=== PATIENT | female | born 1980 | race Caucasian/White ===

== ENCOUNTER 2019-01-18 22:47 | Emergency (ER) | payer MEDICAID ==
[~2019-01-18] VITALS: Ht 144.8 cm; Wt 66.4 kg
[2019-01-18 22:51] VITALS: Ht 144.8 cm; Wt 66.4 kg
[2019-01-18] MEDS ORDERED: TOPAMAX50 MG (22:52)
[2019-01-18] MEDS ORDERED: BUPROPION HCL75 MG (22:52)
[2019-01-18] MEDS ORDERED: XANAX0.25 MG (22:53)
[2019-01-18] MEDS ORDERED: COUMADIN1 MG (22:53)
[2019-01-19] MEDS ORDERED: KLONOPIN0.5 MG PO (01:54)
[2019-01-19 02:24] VITALS: BP 118/87
== END 2019-01-19 02:24 | disposition home or self-care (01) ==
LOC: D.ER 22:47
DX: S00.83XA Contusion of other part of head, initial encounter (principal); Y04.2XXA Assault by strike against or bumped into by another person, initial encounter; Y93.89 Activity, other specified; Y92.89 Other specified places as the place of occurrence of the external cause; S16.1XXA Strain of muscle, fascia and tendon at neck level, initial encounter

== ENCOUNTER 2019-03-18 09:22 | Inpatient (IN) | payer MEDICAID ==
[~2019-03-18] VITALS: Ht 144.8 cm; Wt 75.1 kg
[~2019-03-18 09:22] MED LIST: BUPROPION HCL75 MG PO; COUMADIN1 MG PO; KLONOPIN0.5 MG PO; TOPAMAX50 MG PO; XANAX0.25 MG
[2019-03-18] MEDS ORDERED: GABAPENTIN100 MG PO (09:31)
--- NOTE | 2019-03-18 10:12 | NUR ---
PT HAD SC IN SEPTEMBER AND HAD 2 STENTS PLACED AT THAT TIME. HISTORY OF MECHANICAL HEART VALVE.
[2019-03-18 10:19] LABS: ALBUMIN 3.7 g/dL (3.4-5.0); ALKALINE PHOSPHATASE 79 U/L (46-116); ALT (SGPT) 23 U/L (10-68); BILIRUBIN - TOTAL 0.12 mg/dL (0.2-1.3); CALC OSMOLALITY 275 mosm/kg (275-300); CARBON DIOXIDE 27.5 mmol/L (21.0-32.0); CHLORIDE - SERUM 106 mmol/L (98-107); CREATININE - SERUM 0.8 mg/dL (0.6-1.3); GLUCOSE 87 mg/dL (74-106); POTASSIUM - SERUM 4.1 mmol/L (3.5-5.1); PROTEIN - SERUM 7.2 g/dL (6.4-8.2); SODIUM 139 mmol/L (136-145); UREA NITROGEN 9 mg/dL (7-18); eGFR NON AFRICAN AMERICAN 86 mL/min (90-120)
[2019-03-18 10:30] LABS: CKMB 0.6 U/L (0.0-3.6); CREATINE KINASE 67 UL (21-215); INR 7.31 (0.85-1.17); PROTIME 61.6 SECONDS (11.6-15.0); TROPONIN-I < 0.017 ng/mL (0.000-0.060)
[2019-03-18 10:33] LABS: BASOPHILS 0.7 % (0-2); EOSINOPHILS 2.5 % (0-7); HEMATOCRIT 34.7 % (36.0-48.0); IMMATURE GRANULOCYTES 1.1 % (0-5); LYMPHOCYTES 29.6 % (15-50); MCH 26.8 pg (26.0-34.0); MCHC 31.7 g/dL (31.0-37.0); MCV 84.6 fL (80.0-100.0); MONOCYTES 11.2 % (2-11); NEUTROPHILS 54.9 % (40-80); PLATELET COUNT 568 10x3/uL (130-400); RDW 18.1 % (11.5-14.5); WBC 10.8 10x3/uL (4.8-10.8)
--- NOTE | 2019-03-18 13:46 | NUR ---
RECIVED FROM ER PER BED .. ADMIT ASSESSMENT PER RN
[2019-03-18 13:55] VITALS: BP 129/83; BMI 30.3
--- NOTE | 2019-03-18 17:49 | NUR ---
WITHOUT CHANGES OR DISTRESS NOTED AT THIS TIME. DENIES NEEDS
[2019-03-18 18:20] VITALS: BP 91/53
--- NOTE | 2019-03-18 18:45 | NUR ---
TOOK PT TWO LARGE CUPS OF ICE WATER AND INFORMED HER THAT DR NORTON HAS ORDERED A PELVIC US AND SHE NEEDS A FULL BLADDER FOR THE EXAM. PT STATED UNDERSTANDING AND WILL CALL ATER SHE DRINKS BOTH CUPS OF WATER.
--- NOTE | 2019-03-18 19:35 | NUR ---
GONE TO US VIA .
[2019-03-18 20:00] VITALS: BP 107/62
--- NOTE | 2019-03-18 20:33 | NUR ---
PT BACK TO ROOM FROM US, HS MEDS GIVEN WITH FRESH ICE WATER. TORADOL GIVEN FOR C/O PAIN TP PELVIS/ABD. RATES PAIN AT A 10 ON PAIN SCALE.
[2019-03-18 22:30] LABS: BASOPHILS 0.3 % (0-2); EOSINOPHILS 2.3 % (0-7); HEMATOCRIT 31.9 % (36.0-48.0); HEMOGLOBIN 9.9 g/dL (12-16); IMMATURE GRANULOCYTES 0.8 % (0-5); LYMPHOCYTES 31.4 % (15-50); MCH 26.8 pg (26.0-34.0); MCV 86.2 fL (80.0-100.0); MEAN PLATELET VOLUME 8.9 fL (7.4-10.4); MONOCYTES 10.1 % (2-11); NEUTROPHILS 55.1 % (40-80); PLATELET COUNT 509 10x3/uL (130-400); RDW 18.2 % (11.5-14.5)
[2019-03-18 22:31] LABS: WBC 14.2 10x3/uL (4.8-10.8)
[2019-03-19] VITALS: BP 91/52
[2019-03-19 04:00] VITALS: BP 100/67
[2019-03-19 06:09] LABS: BASOPHILS 0.5 % (0-2); EOSINOPHILS 2.1 % (0-7); HEMATOCRIT 31.4 % (36.0-48.0); HEMOGLOBIN 9.7 g/dL (12-16); IMMATURE GRANULOCYTES 0.7 % (0-5); LYMPHOCYTES 28.6 % (15-50); MCH 26.7 pg (26.0-34.0); MCHC 30.9 g/dL (31.0-37.0); MCV 86.5 fL (80.0-100.0); MEAN PLATELET VOLUME 9.6 fL (7.4-10.4); MONOCYTES 10.1 % (2-11); PLATELET COUNT 450 10x3/uL (130-400); RBC 3.63 10x6/uL (4.00-5.40); RDW 18.5 % (11.5-14.5); WBC 11.7 10x3/uL (4.8-10.8)
[2019-03-19 06:40] VITALS: Ht 144.8 cm; Wt 75.1 kg
[2019-03-19 06:43] LABS: ALBUMIN 3.3 g/dL (3.4-5.0); ALKALINE PHOSPHATASE 91 U/L (46-116); BILIRUBIN - TOTAL 0.13 mg/dL (0.2-1.3); CALCIUM 8.2 mg/dL (8.5-10.1); CARBON DIOXIDE 24.4 mmol/L (21.0-32.0); CHLORIDE - SERUM 108 mmol/L (98-107); CREATININE - SERUM 0.9 mg/dL (0.6-1.3); GLUCOSE 83 mg/dL (74-106); POTASSIUM - SERUM 4.1 mmol/L (3.5-5.1); PROTEIN - SERUM 6.2 g/dL (6.4-8.2); SODIUM 138 mmol/L (136-145); eGFR NON AFRICAN AMERICAN 75 mL/min (90-120)
[2019-03-19 06:44] LABS: ALT (SGPT) 117 U/L (10-68); CALC OSMOLALITY 275 mosm/kg (275-300); UREA NITROGEN 15 mg/dL (7-18)
[2019-03-19 07:10] LABS: PROTIME 62.6 SECONDS (11.6-15.0)
[2019-03-19 07:13] LABS: INR 7.47 (0.85-1.17)
--- NOTE | 2019-03-19 07:46 | NUR ---
ASSESSMENT DONE. DENIES NEEDS
[2019-03-19 08:58] VITALS: BP 78/44
--- NOTE | 2019-03-19 09:49 | NUR ---
I have reviewed this patient and I concur with the Shift Assessment completed by the Licensed Practical Nurse today this shift.
[2019-03-19 12:00] VITALS: BP 86/34
[2019-03-19 16:00] VITALS: BP 81/48
--- NOTE | 2019-03-19 17:01 | NUR ---
WITHOUT CHANGES OR DISTRESS NOTED AT THIS TIME. DENIES NEEDS
[2019-03-19 19:00] VITALS: BP 95/58
--- NOTE | 2019-03-19 19:15 | NUR ---
RECEIVED REPORT, WILL ASSUME CARE OF PT, ASKING FOR A SPRITE(PROVIDED), DENIES ANY OTHER NEEDS AT THIS TIME, FAMILY AT BEDSIDE, BED IS LOW, SRX2, CALL LIGHT IN REACH, WILL CONTINUE PLAN OF CARE
[2019-03-20] VITALS (7 sets, daily range): BP systolic 86–135; BP diastolic 42–69
--- NOTE | 2019-03-20 01:04 | NUR ---
WENT TO GIVE PAIN MEDS, PT WAS SOUND A SLEEP, WILL WAIT FOR HER TO CALL AGAIN
--- NOTE | 2019-03-20 02:33 | NUR ---
I have reviewed this patient and I concur with the Shift Assessment completed by the Licensed Practical Nurse today this shift.
[2019-03-20 05:07] LABS: BASOPHILS 0.6 % (0-2); EOSINOPHILS 2.3 % (0-7); HEMATOCRIT 29.2 % (36.0-48.0); HEMOGLOBIN 8.9 g/dL (12-16); IMMATURE GRANULOCYTES 0.3 % (0-5); LYMPHOCYTES 33.2 % (15-50); MCH 26.5 pg (26.0-34.0); MCHC 30.5 g/dL (31.0-37.0); MCV 86.9 fL (80.0-100.0); MEAN PLATELET VOLUME 9.5 fL (7.4-10.4); MONOCYTES 9.1 % (2-11); NEUTROPHILS 54.5 % (40-80); PLATELET COUNT 438 10x3/uL (130-400); RBC 3.36 10x6/uL (4.00-5.40)
[2019-03-20 05:29] LABS: ALBUMIN 2.9 g/dL (3.4-5.0); ALKALINE PHOSPHATASE 81 U/L (46-116); BILIRUBIN - TOTAL 0.13 mg/dL (0.2-1.3); CALCIUM 8.3 mg/dL (8.5-10.1); CARBON DIOXIDE 23.3 mmol/L (21.0-32.0); CHLORIDE - SERUM 111 mmol/L (98-107); CREATININE - SERUM 0.9 mg/dL (0.6-1.3); GLUCOSE 98 mg/dL (74-106); INR 6.5 (0.85-1.17); POTASSIUM - SERUM 3.9 mmol/L (3.5-5.1); PROTEIN - SERUM 5.9 g/dL (6.4-8.2); PROTIME 56.1 SECONDS (11.6-15.0); SODIUM 140 mmol/L (136-145); eGFR NON AFRICAN AMERICAN 75 mL/min (90-120)
[2019-03-20 05:30] LABS: ALT (SGPT) 76 U/L (10-68); CALC OSMOLALITY 280 mosm/kg (275-300); UREA NITROGEN 19 mg/dL (7-18)
--- NOTE | 2019-03-20 07:44 | NUR ---
AWAKE AND ORIENTED. TELEMERTY SHOWS SR WITH PACED BEATS. RIGHT AC WITH NS AT 125. PT IS UP AB LUCILA. VISITOR AT BEDSIDE. WILL MONITOR
--- NOTE | 2019-03-20 10:04 | NUR ---
I have reviewed this patient and I concur with the Shift Assessment completed by the Licensed Practical Nurse today this shift.
--- NOTE | 2019-03-20 19:34 | NUR ---
REPORTED LOST IV ACCESS. ATTEMPTS MADE AND UNSUCESSFUL TO RESTART. CALLED CURRICULUM DEVELOPMENT SPECIALIST FOR PAIN COVERAWGE. D/C'D IV DILAUDID AND STARTED NORCO 1PO Q6HRP. WILL NOTIFY PT.
--- NOTE | 2019-03-20 20:00 | NUR ---
RECEIVED PT FROM NORMA LYNN, PT COMPLAINS OF PAIN, GAVE NORCO ORDERED, DENIES ANY OTHER NEEDS AT THIS TIME, BED IS LOW, SRX2, CALL LIGHT IN REACH, WILL CONTINUE PLAN OF CARE
--- NOTE | 2019-03-21 01:01 | NUR ---
I have reviewed this patient and I concur with the Shift Assessment completed by the Licensed Practical Nurse today this shift.
[2019-03-21 04:00] VITALS: BP 81/40
[2019-03-21 05:18] LABS: BASOPHILS 0.4 % (0-2); EOSINOPHILS 2.4 % (0-7); HEMATOCRIT 29.4 % (36.0-48.0); IMMATURE GRANULOCYTES 0.5 % (0-5); LYMPHOCYTES 30.4 % (15-50); MCH 26.5 pg (26.0-34.0); MCHC 30.6 g/dL (31.0-37.0); MCV 86.5 fL (80.0-100.0); MEAN PLATELET VOLUME 9.5 fL (7.4-10.4); MONOCYTES 8.4 % (2-11); NEUTROPHILS 57.9 % (40-80); PLATELET COUNT 452 10x3/uL (130-400); RDW 19.2 % (11.5-14.5); WBC 10.3 10x3/uL (4.8-10.8)
[2019-03-21 05:28] LABS: INR 4.49 (0.85-1.17); PROTIME 41.8 SECONDS (11.6-15.0)
[2019-03-21 05:30] LABS: ALBUMIN 3.2 g/dL (3.4-5.0); ALKALINE PHOSPHATASE 73 U/L (46-116); ALT (SGPT) 58 U/L (10-68); BILIRUBIN - TOTAL 0.19 mg/dL (0.2-1.3); CALC OSMOLALITY 274 mosm/kg (275-300); CALCIUM 8.6 mg/dL (8.5-10.1); CARBON DIOXIDE 20.9 mmol/L (21.0-32.0); CHLORIDE - SERUM 110 mmol/L (98-107); CREATININE - SERUM 0.9 mg/dL (0.6-1.3); GLUCOSE 86 mg/dL (74-106); POTASSIUM - SERUM 3.7 mmol/L (3.5-5.1); PROTEIN - SERUM 6.1 g/dL (6.4-8.2); SODIUM 137 mmol/L (136-145); UREA NITROGEN 18 mg/dL (7-18); eGFR NON AFRICAN AMERICAN 75 mL/min (90-120)
[2019-03-21 07:52] VITALS: BP 91/53
--- NOTE | 2019-03-21 09:53 | NUR ---
PT HAS NO IV ACCESS, EVEN AFTER MULTIPLE ATTEMPTS, PAGED RENETTA BELCHER, WAITING MANAGER MARKET BACK.
--- NOTE | 2019-03-21 10:22 | NUR ---
NORCO GIVEN FOR PAIN LEVEL OF 9/10. PT RESTING COMFORTABLY, INFORMED HER ABOUT NOT PLACING CVL AT THIS TIME. PT VERBALIZED UNDERSTANDING, DENIES ANY OTHER NEEDS AT THIS TIME. CALL LIGHT IN REACH, NAD NOTED, WILL CONTINUE TO MONITOR.
[2019-03-21 12:00] VITALS: BP 96/43
--- NOTE | 2019-03-21 14:10 | NUR ---
DR. MICHAEL AND RENETTA BELCHER AT BEDSIDE, PT DENIES ANY NEEDS AT THIS TIME. CALL LIGHT IN REACH, NAD NOTED.
--- NOTE | 2019-03-21 14:57 | NUR ---
GAVE NORCO FOR PAIN LEVEL OF 8/10. PT RESTING COMFORTABLY IN BED, DENIES ANY OTHER NEEDS AT THIS TIME. CALL LIGHT IN REACH, FAMILY AT BEDSIDE, NAD NOTED, WILL CONTINUE TO MONITOR.
[2019-03-21 15:47] VITALS: BP 112/65
--- NOTE | 2019-03-21 18:20 | NUR ---
PT C/O MALE VISITOR NOT ALLOWED TO BE IN THE ROOM, EVEN THOUGH SHE TOLD THIS NURSE AND KITA RN THAT SHE HAD CALLED HIM TO BRING HER PERSONAL BELONGINGS TO HOSPITAL. BEFORE MALE VISITOR LEFT HE TOLD KITA LYNN TO CHECK PT'S SIDE DRAWER. THIS NURSE AND KITA CHECKED PT'S SIDE DRAWERS AND FOUND NOTHING BUT A VAPE. INFORMED PT THAT MALE VISITOR WOULD NOT BE ALLOWED IN ROOM.
--- NOTE | 2019-03-21 19:37 | NUR ---
RECEIVED REPORT, WILL ASSUME CARE OF PT, DENIES ANY NEEDS AT THIS TIME, BED IS LOW, SRX2, CALL LIGHT IN REACH, WILL CONTINUE PLAN OF CARE
--- NOTE | 2019-03-21 19:43 | NUR ---
PT FRIEND ABENA PUSHING PT IN WHEELCHAIR ON UNIT, I CHANGED PT BREEN
[2019-03-21 20:00] VITALS: BP 130/69
[2019-03-22 00:34] VITALS: BP 98/46
[2019-03-22 04:00] VITALS: BP 113/56
--- NOTE | 2019-03-22 04:02 | NUR ---
I have reviewed this patient and I concur with the Shift Assessment completed by the Licensed Practical Nurse today this shift.
[2019-03-22 05:51] LABS: BASOPHILS 0.5 % (0-2); EOSINOPHILS 2.2 % (0-7); HEMATOCRIT 29.4 % (36.0-48.0); HEMOGLOBIN 9.1 g/dL (12-16); IMMATURE GRANULOCYTES 0.4 % (0-5); MCH 26.5 pg (26.0-34.0); MCV 85.5 fL (80.0-100.0); MEAN PLATELET VOLUME 9.4 fL (7.4-10.4); MONOCYTES 8.8 % (2-11); NEUTROPHILS 60.1 % (40-80); PLATELET COUNT 457 10x3/uL (130-400); RBC 3.44 10x6/uL (4.00-5.40); RDW 19.5 % (11.5-14.5); WBC 10.5 10x3/uL (4.8-10.8)
[2019-03-22 06:02] LABS: INR 3.73 (0.85-1.17); PROTIME 36.1 SECONDS (11.6-15.0)
[2019-03-22 06:33] LABS: ALBUMIN 3.2 g/dL (3.4-5.0); ALKALINE PHOSPHATASE 71 U/L (46-116); ALT (SGPT) 49 U/L (10-68); BILIRUBIN - TOTAL 0.15 mg/dL (0.2-1.3); CALC OSMOLALITY 278 mosm/kg (275-300); CALCIUM 8.6 mg/dL (8.5-10.1); CARBON DIOXIDE 21.3 mmol/L (21.0-32.0); CHLORIDE - SERUM 109 mmol/L (98-107); CREATININE - SERUM 0.9 mg/dL (0.6-1.3); GLUCOSE 89 mg/dL (74-106); POTASSIUM - SERUM 3.6 mmol/L (3.5-5.1); PROTEIN - SERUM 6.3 g/dL (6.4-8.2); SODIUM 140 mmol/L (136-145); UREA NITROGEN 15 mg/dL (7-18); eGFR NON AFRICAN AMERICAN 75 mL/min (90-120)
[2019-03-22 07:38] VITALS: BP 73/39
--- NOTE | 2019-03-22 07:58 | NUR ---
ASSESSMENT DONE. DENIES NEEDS
--- NOTE | 2019-03-22 09:07 | NUR ---
I have reviewed this patient and I concur with the Shift Assessment completed by the Licensed Practical Nurse today this shift.
[2019-03-22 11:27] VITALS: BP 96/44
--- NOTE | 2019-03-22 14:30 | NUR ---
PT WENT AMA. AND WING HANNAH
--- NOTE | 2019-03-22 15:01 | MORECARE ---
CASE MANAGEMENT DISCHARGE SUMMARY PATIENT: KERA NJ UNIT: [id number] ADM DATE: 03/18/19 AGE: 38 : 82 SEX: F ROOM/BED: D.2121 AUTHOR: TOSHA GROVES PHYSICIAN: REFERRING PHYSICIAN: LEILANI MICHAEL MD DATE OF SERVICE: 03/22/19 Discharge Plan Patient Name: KERA NJ Facility: [facility]:[place] : 1980 Planned Disposition: Anticipated Discharge Date: Discharge Date: Expected LOS: Initial Reviewer: [email or web address] Initial Review Date: 03/22/2019 Generated: 03/22/19 4:01 pm Comments DCP- Discharge Planning Updated by [email or web address]: Tristian Stevens on 03/22/19 1:[address] Patient Name: KERA NJ Admission Status: ER Accout number: [id number] Admission Date: 03-18-2019 : 1980 Admission Diagnosis: Attending: LEILANI MICHAEL Current LOS: 4 Anticipated DC Date: Planned Disposition: Primary Insurance: MEDICAID [place] Discharge Planning Comments: CM ATTEMPTED TO MEET WITH PT FOR INITIAL ASSESSMENT OF DISCHARGE NEEDS. PT WAS NOT IN ROOM AT APPROXIMATELY 1450 HOURS. CM TO ATTEMPT ASSESSMENT OF PT AT A LATER TIME. Company Dancer: Tristian Stevens Patient Name: KERA NJ Page [phone] at 1501 All edits/amendments must be made on the electronic document DICTATION DATE: 03/22/19 1501 BRAILLE PROOFREADER: [place] 03/22/19 1501 RPT#: [id number] DC DATE: STATUS: ADM IN [facility] [address] [place] [address] END OF REPORT
--- NOTE | 2019-03-22 16:34 | MORECARE ---
CASE MANAGEMENT DISCHARGE SUMMARY PATIENT: KERA NJ UNIT: [id number] ADM DATE: 03/18/19 AGE: 38 : 82 SEX: F ROOM/BED: D.[facility]2 AUTHOR: TOSHA GROVES PHYSICIAN: REFERRING PHYSICIAN: LEILANI MICHAEL MD DATE OF SERVICE: 03/22/19 Discharge Plan Patient Name: KERA NJ Facility: [facility]:[place] : 1980 Planned Disposition: Left Against Medical Advice Anticipated Discharge Date: 03/22/19 Discharge Date: 03/22/2019 Expected LOS: 4 Initial Reviewer: [email or web address] Initial Review Date: 03/22/2019 Generated: 03/22/19 5:33 pm Comments DCP- Discharge Planning Updated by RAMONITA: Tristian Stevens on 03/22/19 1:[address] Patient Name: KERA NJ Admission Status: ER Accout number: [id number] Admission Date: 03-18-2019 : 1980 Admission Diagnosis: Attending: LEILANI MICHAEL Current LOS: 4 Anticipated DC Date: Planned Disposition: Primary Insurance: MEDICAID [place] Discharge Planning Comments: CM ATTEMPTED TO MEET WITH PT FOR INITIAL ASSESSMENT OF DISCHARGE NEEDS. PT WAS NOT IN ROOM AT APPROXIMATELY 1450 HOURS. CM TO ATTEMPT ASSESSMENT OF PT AT A LATER TIME. Nematology Teacher: Tristian Stevens Last DP export: 03/22/19 2:01 Patient Name: KERA NJ Page [phone] at 1634 All edits/amendments must be made on the electronic document DICTATION DATE: 03/22/19 163 BULB TESTER: [place] 03/22/19 163 RPT#: [id number] DC DATE:03/22/19 STATUS: DIS IN [facility] [address] [place] [address] END OF REPORT
== END 2019-03-22 15:16 | disposition left against medical advice (07) | DRG 813 ==
LOC: D.ER 09:22 → D.M2 12:08 → D.SDCHOLD 13:56 → D.M2 13:56
PROVIDERS: Family Medicine; Student in an Organized Health Care Education/Training Program; ADMIT Emergency Medicine; ATTEND Emergency Medicine
DX: D75.82 Heparin induced thrombocytopenia (HIT) (principal); D62 Acute posthemorrhagic anemia; N92.0 Excessive and frequent menstruation with regular cycle; D68.9 Coagulation defect, unspecified; Z79.01 Long term (current) use of anticoagulants; I35.0 Nonrheumatic aortic (valve) stenosis; T45.515A Adverse effect of anticoagulants, initial encounter; Z95.2 Presence of prosthetic heart valve

== ENCOUNTER 2019-06-16 16:44 | Emergency (ER) | payer MEDICAID ==
[~2019-06-16] VITALS: Ht 144.8 cm; Wt 54.1 kg
[~2019-06-16 16:44] MED LIST changes: +GABAPENTIN100 MG PO
[2019-06-16 16:49] VITALS: Ht 144.8 cm; Wt 54.1 kg
--- NOTE | 2019-06-16 17:25 | NUR ---
PT IS A LOW RISK PER ASSESSMENT. REVIEWED COPING SKILLS WITH PT. PT GOES "INTO NATURE TO FIND PEACE." RESOURCES REVIEWED WITH PT AND GIVEN A COPY. VERBALIZED UNDERSTANDING. DENIES SI AT THIS TIME.DR. CARMONA AND ATTENDING NOTIFIED OF ASSESSMENT RESULTS.
[2019-06-16 17:51] LABS: BASOPHILS 0.4 % (0-2); EOSINOPHILS 1.4 % (0-7); HEMATOCRIT 30.1 % (36.0-48.0); HEMOGLOBIN 9.5 g/dL (12-16); IMMATURE GRANULOCYTES 0.2 % (0-5); LYMPHOCYTES 38.9 % (15-50); MCH 27.5 pg (26.0-34.0); MCHC 31.6 g/dL (31.0-37.0); MEAN PLATELET VOLUME 9.4 fL (7.4-10.4); MONOCYTES 10.2 % (2-11); NEUTROPHILS 48.9 % (40-80); PLATELET COUNT 507 10x3/uL (130-400); RBC 3.46 10x6/uL (4.00-5.40); RDW 15.1 % (11.5-14.5); WBC 8.4 10x3/uL (4.8-10.8)
[2019-06-16 17:53] LABS: HCG URINE NEGATIVE (NEGATIVE)
[2019-06-16 17:54] LABS: APPEARANCE CLEAR (CLEAR); BILIRUBIN NEGATIVE (NEGATIVE); COLOR YELLOW (YELLOW); GLUCOSE NEGATIVE (NEGATIVE); KETONE NEGATIVE (NEGATIVE); NITRITE NEGATIVE (NEGATIVE); PROTEIN NEGATIVE (NEGATIVE); UROBILINOGEN NORMAL (NORMAL)
[2019-06-16 17:58] LABS: UDS - AMPHET NEGATIVE QUAL (NEGATIVE); UDS - BARB NEGATIVE QUAL (NEGATIVE); UDS - BENZO POSITIVE QUAL (NEGATIVE); UDS - COCAINE NEGATIVE QUAL (NEGATIVE); UDS - OPIATE NEGATIVE QUAL (NEGATIVE); UDS - PCP NEGATIVE QUAL (NEGATIVE); UDS - THC POSITIVE QUAL (NEGATIVE)
[2019-06-16 18:02] LABS: CALC OSMOLALITY 276 mosm/kg (275-300); CALCIUM 9.2 mg/dL (8.5-10.1); CARBON DIOXIDE 25.9 mmol/L (21.0-32.0); CHLORIDE - SERUM 106 mmol/L (98-107); CREATININE - SERUM 1.1 mg/dL (0.6-1.3); GLUCOSE 76 mg/dL (74-106); INR 1.85 (0.85-1.17); POTASSIUM - SERUM 4.2 mmol/L (3.5-5.1); PROTIME 21.1 SECONDS (11.6-15.0); SODIUM 138 mmol/L (136-145); UREA NITROGEN 19 mg/dL (7-18); eGFR NON AFRICAN AMERICAN 59 mL/min (90-120)
[2019-06-16 18:27] LABS: ALBUMIN 3.6 g/dL (3.4-5.0); ALKALINE PHOSPHATASE 67 U/L (46-116); ALT (SGPT) 15 U/L (10-68); BILIRUBIN - TOTAL 0.13 mg/dL (0.2-1.3); CKMB 0.4 U/L (0.0-3.6); CREATINE KINASE 62 UL (21-215); PROTEIN - SERUM 6.5 g/dL (6.4-8.2)
[2019-06-16 21:05] VITALS: BP 98/61
== END 2019-06-16 21:05 | disposition home or self-care (01) ==
LOC: D.ER 16:44
PROVIDERS: Family Medicine
DX: R10.9 Unspecified abdominal pain (principal); T50.905A Adverse effect of unspecified drugs, medicaments and biological substances, initial encounter; I25.2 Old myocardial infarction; Z95.810 Presence of automatic (implantable) cardiac defibrillator; Z95.4 Presence of other heart-valve replacement

== ENCOUNTER 2019-06-26 19:21 | Observation (INO) | payer MEDICAID ==
[~2019-06-26] VITALS: Ht 144.8 cm; Wt 59.1 kg
--- NOTE | ~2019-06-26 | HEMODYNAMI ---
PATIENT:KERA NJ MEDICAL RECORD: [id number] : [birth year] LOCATION:[facility] D.2122 [facility]# [id number] ADMISSION DATE: 06/26/19 Generatedon:06/28/201912:42 Patient name: KERA NJ Patient #: [id number] SSN : [id number] : 1980 Date of study: 06/28/2019 Page: Of Hemodynamic Procedure Report Patient Data Patient Demographics Procedure consent was obtained First Name: KERA Gender: Female Last Name: CLEM : 1980 Patient #: [id number] Age: 38 year(s) Race: SSN: [id number] Additional ID: [id number] Contact details Address: [address] [place] [address] State: [place] [facility] Zip code: [address] Past Medical History Allergies Allergen Reaction Date Comments Reported Other allergy 06/28/2019 ZOLPIDEM(FROM AMBIEN)/HEPARIN Admission Admission Data Admission Date: 06/26/2019 Admission Time: 21:07 Arrival Date: 06/28/2019 Arrival Time: 0:00 Admit Source: Emergency Insurance Payor: Medicaid department [facility] #: [id number] Room #: D2122 Height (in.): 57 BSA: 1.5 (m2) Height (cm.): 144.78 BMI: 28.13 (kg/m2) Weight (lbs.): 130 Weight (kg.): 58.97 Lab Results Lab Result Date: 06/28/2019 Lab Result Time: 0:00 Biochemistry Name Units Result Min Max BUN mg/dl 12 --(-*--)-- 7 18 CK-MB ng/ml 0.6 --(*---)-- 0 3.6 Creatinine mg/dl 1 --(--*-)-- 0.6 1.3 eGFR ml/min 66 *-(----)-- 90 120 NONAFRICAN Troponin l ng/ml 0.017 --(-*--)-- 0 0.06 CBC Name Units Result Min Max Hematocrit % 30 *-(----)-- 42 54 Hemoglobin g/dl 9.5 *-(----)-- 13.5 17.5 Procedure Procedure Types Cath Procedure Diagnostic Procedure C Coronaries only Procedure Description Procedure Date Procedure Date: 06/28/2019 Procedure Start Time: 12:26 Procedure End Time: 12:41 Procedure Staff Name Function Feliciano Santa MD Performing Physician Phillip Lira RT Monitor Ijeoma Evans RT Scrub Lester Jonas RN Nurse Indication Unstable angina Procedure Data Cath Procedure Fluoroscopy Diagnostic fluoroscopy Total fluoroscopy Time: 1.5 time: 1.5 min min Diagnostic fluoroscopy Total fluoroscopy dose: dose: 124.93 mGy 124.93 mGy Contrast Material Contrast Material Type Amount (ml) Isovue 300 41 Entry Location Entry Primary Successful Side Size Upsize Upsize Entry Closure Succes sful Closure Location (Fr) 1 (Fr) 2 (Fr) Remarks Device Remarks Femoral Right 5 Fr Exoseal artery Estimated blood loss: 10 ml Diagnostic catheters Device Type Used For End Catheter Placement DIAGNOSTIC JL 4.0 5Fr Procedure catheter ([id number]) DIAGNOSTIC 3DRC 5Fr Procedure catheter ([id number]) Procedure Complications No complications Procedure Medications Medication Administration Route Dosage Oxygen etCO2 Nasal cannula 2 l/min 0.9% NaCl 250 Lidocaine 2% added to field 20 0.9% NaCl I.V. 100 ml/hr Fentanyl I.V. 50 mcg Versed I.V. 1 mg Fentanyl I.V. 50 mcg Versed I.V. 1 mg Fentanyl I.V. 50 mcg Versed I.V. 1 mg Angiomax (bolus) I.V. 8 ml Angiomax Drip I.V. drip 20.7 ml/hr (250mg/50ml NS) (Renal) Angiomax Drip I.V. drip 20.7 ml/hr (250mg/50ml NS) (Renal) Hemodynamics Rest BSA: 1.5 (m2) HGB: 9.5 (g/dl) O2 Consumption: Estimated: 144.91 (ml/min) O2 Cons umption indexed: Estimated:96.61 (ml/min/m) Heart Rate: 52 (bpm) Snapshots Pre Cath Intra NCS Post Cath Vital Signs Time Heart Resp SPO2 etCO2 NIBP Rhythm Pain Sedation Rate (ipm) (%) (mmHg) (mmHg) Status Level (bpm) 12:13:50 49 18 98 30 126/40(91) NSR 0 (11) 10(A) , No pain 12:18:08 56 18 96 30.7 97/52(67) NSR 0 (11) 10(A) , No pain 12:22:16 56 17 96 30.8 99/52(70) NSR 0 (11) 10(A) , No pain 12:26:24 55 16 96 31.5 98/55(69) NSR 0 (11) 9(A) , No pain 12:30:29 63 17 96 27.7 90/56(66) NSR 0 (11) 9(A) , No pain 12:34:31 74 17 96 34.5 96/58(75) NSR 0 (11) 9(A) , No pain 12:37:00 73 17 95 33.8 95/47(73) NSR 0 (11) 9(A) , No pain Medications Time Medication Route Dose Verified Delivered Reason Notes Eff ectiveness by by 12:13:50 Oxygen etCO2 2 Feliciano Lester Per physician Nasal l/min Arina Jonas RN cannula 12:14:26 0.9% NaCl 250 Feliciano Lester ml x Arina Jonas RN 2 for acist and flush 12:14:50 Lidocaine added 20ml Feliciano Lester for local 2% to vial Arina Jonas RN anesthetic field 12:15:03 0.9% NaCl I.V. 100 Feliciano Lester Per physician ml/hr Arina Jonas RN 12:25:42 Fentanyl I.V. 50 Feliciano Lester for sedation mcg Arina Jonas RN 12:25:49 Versed I.V. 1 mg Feliciano Lester for sedation Arina Jonas RN 12:27:51 Fentanyl I.V. 50 Feliciano Lester for sedation mcg Arina Jonas RN 12:27:54 Versed I.V. 1 mg Feliciano Lester for sedation Arina Jonas RN 12:30:46 Fentanyl I.V. 50 Feliciano Lester for sedation mcg Arina Jonas RN 12:30:49 Versed I.V. 1 mg Feliciano Lester for sedation Arina Jonas RN 12:31:22 Angiomax I.V. 8 ml Feliciano Batista for (bolus) Arina Jonas RN anticoagulation 12:31:47 Angiomax I.V. 20.7 Feliciano Batista for Drip drip ml/hr Arina Jonas RN anticoagulation (250mg/50ml NS) (Renal) 12:33:37 Angiomax I.V. 20.7 Feliciano Batista for Drip drip ml/hr Arina Jonas RN anticoagulation (250mg/50ml discontinued NS) (Renal) Procedure Log Time Note 11:09:02 Informed consent obtained and on chart 11:09:13 Arrival Date: 06/28/2019 12:00:00 AM 11:09:30 Insurance Payor : Medicaid 11:09:50 Admit Source: Emergency department 11:10:23 Patient Height : 57 inches 11:10:31 Patient Weight : 130 lbs 11:14:29 Lab Result : BUN 12 mg/dl 11:14:29 Lab Result : eGFR NONAFRICAN 66 ml/min 11:14:29 Lab Result : Hemoglobin 9.5 g/dl 11:14:29 Lab Result : Hematocrit 30 % 11:14:29 Lab Result : Creatinine 1 mg/dl 11:14:29 Lab Result : CK-MB 0.6 ng/ml 11:14:29 Lab Result : Troponin l 0.017 ng/ml 11:15:28 Indication : Unstable angina 11:16:23 Diagnostic Cath Status : Urgent 11:17:14 Patient allergic to Other allergyZOLPIDEM(FROM AMBIEN)/HEPARIN 11:20:10 ACC Patient presents with Unstable Angina CCS Anginal Class 4--Inability to carry out any physical activity w/o angina. Angina may occur at rest. 11:20:26 Risk of Mortality: 6.3 11:20:32 Risk of blood transfusion: 31.0 11:20:43 Risk of JUAN JOSE: 7.3 11:20:57 Stress Test: no; N/A ? 11:21:03 Lab results completed and on chart. 11:40:52 Lester Jonas RN sent for patient. Start room use. 11:52:36 Procedure Status Urgent Heart Cath (IP). 11:52:55 Time tracking: Regular hours (M-F 7:00 - 5:00) 11:53:03 Plan of Care:Hemodynamics will remain stable., Cardiac rhythm will remain stable., Comfort level will be maintained., Respiratory function will remain adequate., Patient/ family verbilizes understanding of procedure., Procedure tolerated without complication., Recovers from procedure without complications.. 12:03:22 Patient received from Pre/Post Procedure Room to [facility] 3 Alert and oriented. Tansferred to table in Supine position. 12:03:24 Warm blankets applied, and penelope hugger turned on for patient comfort. 12:03:24 Correct patient and procedure confirmed by team. 12:03:25 ECG and BP/O2 sat monitors applied to patient. 12:11:33 Vital chart was started 12:13:50 Oxygen 2 l/min etCO2 Nasal cannula was administered by Lester Jonas RN; Per physician; Verbal order read back and verified. 12:14:26 0.9% NaCl 250 ml x 2 for acist and flush was administered by Lester Jonas RN; ; Verbal order read back and verified. 12:14:50 Lidocaine 2% 20ml vial added to field was administered by Lester Jonas RN; for local anesthetic; Verbal order read back and verified. 12:15:03 0.9% NaCl 100 ml/hr I.V. was administered by Lester Jonas RN; Per physician; Verbal order read back and verified. 12:15:55 Baseline sample Acquired. 12:16:16 Rhythm: sinus bradycardia 12:16:21 Full Disclosure recording started 12:16:27 H&P Date Dictated: 06/26/2019 Within 30 days and on chart.. 12:16:28 Pre-procedure instructions explained to patient. 12:16:28 Pre-op teaching completed and patient verbalized understanding. 12:16:29 Family in patients room. 12:16:31 Patient NPO since Midnight. 12:16:33 Is the patient allergic to Iodine/contrast media? No. 12:16:37 Is patient on blood thinner?No 12:16:39 ACC The patient was administered the following blood thiners within the last 24 hours: None 12:16:41 Patient diabetic? No. 12:16:43 Patient not . Patient has had tubal. 12:16:45 Previous problem with sedation/anesthesia? No ? 12:16:46 Snore? Yes 12:16:47 Sleep apnea? No 12:16:48 Deviated septum? No 12:16:49 Opens mouth fully? Yes 12:16:51 Sticks out tongue? Yes 12:16:53 Airway obstruction? No ? 12:16:55 Dentures? No ? 12:17:04 Pre procedure: right dorsailis pedis pulse 1+ Palpable, but thready & weak; easily obliterated 12:17:38 Going Femoral due to pt's height of 4'9". 12:17:43 Patient pain scale 0/10 ?. 12:19:51 IV patent on arrival in left forearm with 0.9% NaCl at [facility]. 12:19:55 Right groin area was prepped with chlora-prep and draped in sterile fashion 12:19:56 Alarms reviewed by R. N. 12:19:56 Sharps counted by scrub and verified by R.N. 12:20:05 Use device set Femoral Dx 12:20:06 ACIST Hand Control (77765) opened to sterile field. 12:20:06 ACIST Manifold (33747) opened to sterile field. 12:20:08 ACIST Syringe (20029) opened to sterile field. 12:20:08 Bag Decanter (2002S) opened to sterile field. 12:20:10 Medline Cath Pack ([id number]) opened to sterile field. 12:20:11 Tegaderm 4 x 4 (1626W) opened to sterile field. 12:20:13 SHEATH 5FR [place] (DRE920) opened to sterile field. 12:20:14 EMERALD Guide Wire (333-663) opened to sterile field. 12:25:03 Physician arrived 12:25:03 --------ALL STOP TIME OUT------ 12:25:04 Final Timeout: patient, procedure, and site verified with staff and physician. All members of the team are in agreement. 12:25:05 Right groin site verified by team. 12:25:09 Fire Safety Assessment: A--An alcohol-based skin anteseptic being used preoperatively., C--Open oxygen or nitrous oxide is being used., D--An ESU, laser, or fiber-optic light is being used. 12:25:12 Physical assessment completed. ASA score P 2 - A patient with mild systemic disease as per Feliciano Santa MD. 12:25:16 2) 60-89 Mildly reduced kidney function, and other findings (as for stage 1) point to kidney disease. 12:25:19 Maximum allowable contrast dose (3.7 X eGFR X 0.75)183 ml. 12:25:23 Sedation plan: IV Moderate Sedation Medication:Versed, Fentanyl 12:25:42 Fentanyl 50 mcg I.V. was administered by Lester Jonas RN; for sedation; Verbal order read back and verified. 12::49 Versed 1 mg I.V. was administered by Lester Jonas RN; for sedation; Verbal order read back and verified. 12:26:01 Procedure started. 12:26:04 Local anesthetic to right femoral artery with Lidocaine 2% by Feliciano Santa MD.INITIAL ACCESS ONLY 12:27:51 Fentanyl 50 mcg I.V. was administered by Lester Jonas RN; for sedation; Verbal order read back and verified. 12::54 Versed 1 mg I.V. was administered by Lester Jonas RN; for sedation; Verbal order read back and verified. 12:29:36 A 5 Fr sheath was inserted into the Right Femoral artery 12::42 A DIAGNOSTIC JL 4.0 5Fr catheter ([id number]) was advanced over the wire and used for Procedure. 12:29:51 LCA angiography performed. 12:30:46 Fentanyl 50 mcg I.V. was administered by Lester Jonas RN; for sedation; Verbal order read back and verified. 12::49 Versed 1 mg I.V. was administered by Lester Jonas RN; for sedation; Verbal order read back and verified. 12:31:11 Catheter removed. 12:31:17 A DIAGNOSTIC 3DRC 5Fr catheter ([id number]) was advanced over the wire and used for Procedure. 12:31:22 Angiomax (bolus) 8 ml I.V. was administered by Lester Jonas RN; for anticoagulation; Verbal order read back and verified. 12:31:47 Angiomax Drip (250mg/50ml NS) (Renal) 20.7 ml/hr I.V. drip was administered by Lester Jonas RN; for anticoagulation; Verbal order read back and verified. 12:31:54 RCA angiography performed. 12:31:58 Catheter removed. 12:32:07 EXOSEAL 5Fr (EX500) opened to sterile field. 12:32:37 Sheath removed intact; hemostasis achieved with Exoseal to the Right Femoral artery. 12:32:40 Procedure ended.(Physican Out) 12:33:20 Fluoroscopy time 01.50 minutes. 12:33:25 Fluoroscopy dose: 124.93 mGy 12:33:25 Flurop Dose total: 124.93 12:33:30 Dose Area Product 814.62 mGy/cm. 12:33:34 Contrast amount:Isovue 300 41ml. 12:33:36 Maximum allowable dose exceeded? No. 12:33:37 Angiomax Drip (250mg/50ml NS) (Renal) 20.7 ml/hr I.V. drip was administered by Lester Jonas RN; for anticoagulation discontinued; Verbal order read back and verified. 12:33:38 Sharps counted by scrub and verified by R.N. 12:36:19 Post-op/insertion site Right Femoral artery dressed using a 4 x 4 and Tegaderm. 12:36:20 Post Procedure Pulses reassessed and unchanged 12:36:23 Post-procedure physical assessment completed. ASA score P 2 - A patient with mild systemic disease as per Feliciano Santa MD. 12:36:25 Post procedure rhythm: unchanged. 12:36:27 Estimated blood loss: 10 ml 12:36:29 Post procedure instruction explained to patient.Patient verbalizes understanding. 12:36:29 Patient needs reinforcement of post procedure teaching. 12:37:54 Procedure type changed to Cath procedure, Diagnostic procedure, LHC, Coronaries only 12:37:56 Procedure and supply charges have been captured, reviewed, submitted and are correct. 12::58 Procedure Complication : No complications 12:38:54 Vital chart was stopped 12:38:56 [facility] Findings: mild to moderate CAD (<70%) 12:38:58 Operative report dictated upon procedure completion. 12:38:58 See physician's report for complete and final results. 12:41:34 Report given to Pre/Post Procedure Room. 12:41:37 Patient transfered to Pre/Post Procedure Room with Stretcher. 12:41:39 Procedure ended. 12:41:39 Full Disclosure recording stopped 12:41:42 End room use (Document Last) 12:42:05 End room use (Document Last) 12:42:22 End room use (Document Last) Device Usage Item Name Manufacture Quantity Catalog Hospital Part Current Minimal L ot# / Number Charge Number Stock Stock Serial# Code ACIST Hand Acist 1 69961 [id number] 311597 506927 5 Control Medical (61570) Systems Inc ACIST Acist 1 24047 966106 811256 018483 5 Manifold Medical (26629) Systems Inc ACIST Acist 1 71361 063696 828836 090308 20 Syringe Medical (11586) Systems Inc Bag Microtek 1 2001S 062483 89562 549213 5 Decanter Medical Inc. () Medline Medline 1 [id number] 476428 95805 808457 5 Cath Pack ([id number]) Tegaderm 4 3M 1 1626W 483070 256895 869977 5 x 4 (1626W) SHEATH 5FR Terumo 1 IQR912 614991 049095 002638 5 [place] (NCP639) EMERALD Cardinal 1 502-455 353254 195314 127119 5 Guide Wire Health (502-455) DIAGNOSTIC Cardinal 1 [id number] 460750 613257 322804 10 JL 4.0 5Fr Health catheter (503511T) DIAGNOSTIC Cardinal 1 [id number] 993853 726021 899405 9 3DRC 5Fr Health catheter ([id number]) EXOSEAL 5Fr Cardinal 1 EX500 726996 685825 453618 10 (EX500) Health Signature Audit [place] Stage Time Signature Unsigned Intra-Procedure 06/28/2019 Phillip Lira 12:42:05 PM RT(R) Intra-Procedure 06/28/2019 Lester Jonas 12:42:23 PM RN Intra-Procedure 06/28/2019 Feliciano Santa 12:42:43 PM [place] [id number] [place] [id number]
[2019-06-26] MEDS ORDERED: TRAZODONE HCL150 MG PO (19:32)
[2019-06-26] MEDS ORDERED: EFFEXOR75 MG PO (19:33)
[2019-06-26] MEDS ORDERED: ULTRAM50 MG PO (19:33)
[2019-06-26] MEDS ORDERED: MINIPRESS2 MG PO (19:34)
[2019-06-26 19:55] LABS: BASOPHILS 0.4 % (0-2); EOSINOPHILS 1.9 % (0-7); HEMOGLOBIN 9.5 g/dL (12-16); IMMATURE GRANULOCYTES 0.1 % (0-5); LYMPHOCYTES 41.3 % (15-50); MCH 27.4 pg (26.0-34.0); MCHC 31.7 g/dL (31.0-37.0); MCV 86.5 fL (80.0-100.0); MEAN PLATELET VOLUME 10.9 fL (7.4-10.4); NEUTROPHILS 44.3 % (40-80); RBC 3.47 10x6/uL (4.00-5.40); RDW 15.9 % (11.5-14.5)
[2019-06-26 19:56] LABS: PLATELET COUNT 295 10x3/uL (130-400)
[2019-06-26 20:00] VITALS: BP 87/54
[2019-06-26 20:04] LABS: APTT 40.4 SECONDS (22.8-39.4); INR 2.23 (0.85-1.17); PROTIME 24.4 SECONDS (11.6-15.0)
[2019-06-26 20:11] LABS: CALC OSMOLALITY 277 mosm/kg (275-300); CALCIUM 9.3 mg/dL (8.5-10.1); CARBON DIOXIDE 25.5 mmol/L (21.0-32.0); CHLORIDE - SERUM 108 mmol/L (98-107); GLUCOSE 83 mg/dL (74-106); POTASSIUM - SERUM 3.9 mmol/L (3.5-5.1); SODIUM 140 mmol/L (136-145); UREA NITROGEN 12 mg/dL (7-18); eGFR NON AFRICAN AMERICAN 66 mL/min (90-120)
[2019-06-26 20:31] LABS: ALBUMIN 3.3 g/dL (3.4-5.0); ALKALINE PHOSPHATASE 70 U/L (30-120); ALT (SGPT) 17 U/L (10-68); BILIRUBIN - TOTAL 0.03 mg/dL (0.2-1.3); CKMB 0.6 U/L (0.0-3.6); CREATINE KINASE 116 UL (21-215); PRO BNP 437 pg/mL (0-125); PROTEIN - SERUM 6.1 g/dL (6.4-8.2); TROPONIN-I < 0.017 ng/mL (0.000-0.060)
[2019-06-26 21:00] VITALS: BP 91/57
[2019-06-26] MEDS ORDERED: AMOXICILLIN500 M1 PO (23:44)
[2019-06-26 23:54] VITALS: BP 124/70; BMI 28.2
[2019-06-27 02:44] LABS: CKMB 0.5 U/L (0.0-3.6); CREATINE KINASE 93 UL (21-215); TROPONIN-I < 0.017 ng/mL (0.000-0.060)
--- NOTE | 2019-06-27 05:33 | NUR ---
ADMISSION ASSESSMENT COMPLETED.
--- NOTE | 2019-06-27 07:12 | NUR ---
ALERT AND ORIENTED. TELEMERTY SHOWS SB 50. IV OF NS AT 125. FAMILY AT BEDSIDE. SR UP WITH CALL LIGHT IN REACH. NPO FOR NOW
[2019-06-27 07:21] LABS: CKMB 0.4 U/L (0.0-3.6); CREATINE KINASE 84 UL (21-215)
[2019-06-27 07:23] LABS: TROPONIN-I < 0.017 ng/mL (0.000-0.060)
[2019-06-27 08:00] VITALS: BP 98/46
--- NOTE | 2019-06-27 10:30 | NUR ---
I have reviewed this patient and I concur with the Shift Assessment completed by the Licensed Practical Nurse today this shift.
[2019-06-27 12:45] VITALS: Ht 144.8 cm; Wt 59.1 kg
--- NOTE | 2019-06-27 12:54 | NUR ---
GIVEN MORPHINE 1MG FOR PAIN. B/P 80/46
--- NOTE | 2019-06-27 14:00 | NUR ---
FFP ORDERED AND STARTED AT 1400 BY Raghav COLLAZO RN. BLOOD PRESURE DROPPED TO 40/26. DR OVALLE NOTIFIED AND PA GIVEN A 500 CC BOLUS OF NS. INFUSION OF FFP RESUMED AND B/P REMAINED IN THE 80/40 RANGE.
[2019-06-27 14:06] VITALS: BP 81/39
--- NOTE | 2019-06-27 14:56 | NUR ---
2ND UNIT OF FFP STARTED PER Joyce. ZAY LYNN. FFF INFUSED SLOWLY AND B/P REMAINED IN THE 80'S. NO NEEDS VOICED
[2019-06-27 16:00] VITALS: BP 87/52
--- NOTE | 2019-06-27 19:15 | NUR ---
RECEIVED REPORT, WILL ASSUME CARE OF PT, LYING IN BED, FEET ELEVATED, PLACED ON BED MEZA, BED IS LOW, SRX2, CALL LIGHT IN REACH, WILL CONTINUE PLAN OF CARE
[2019-06-27 20:00] VITALS: BP 115/58
[2019-06-28] VITALS: BP 118/45
[2019-06-28 04:00] VITALS: BP 121/48
[2019-06-28 06:29] LABS: INR 1.33 (0.85-1.17); PROTIME 16.4 SECONDS (11.6-15.0)
--- NOTE | 2019-06-28 07:33 | NUR ---
PT RESTING COMFORTABLY WITH EYES CLOSED. LT FA INFUSING NS AT 75CC/HR. MONITOR SHOWING PACED WITH RATE OF 60. CALL LIGHT IN REACH, NAD NOTED,W ILL CONTINUE TO MONITOR.
[2019-06-28 08:03] VITALS: BP 110/24
--- NOTE | 2019-06-28 08:50 | NUR ---
RECHECKED PT'S BP BEFORE GIVEN AM MEDS. BP NOW 114/50. PT A/O X4, RATES PAIN LEVEL OF 7/10. DENIES ANY OTHER NEEDS AT THIS TIME. CALL LIGHT IN REACH, NAD NOTED,W ILL CONTINUE TO MONITOR.
[2019-06-28 08:51] VITALS: BP 114/50
[2019-06-28 12:04] VITALS: BP 120/44
--- NOTE | 2019-06-28 12:20 | NUR ---
PT TO [employer].
--- NOTE | 2019-06-28 12:37 | HP ---
PATIENT: KERA WINCHESTER MEDICAL RECORD: [id number] ACCOUNT: [id number] LOCATION:.[facility].2122 : 84 ADMISSION DATE: 06/26/19 PCP: DIANNE ROMERO MD HISTORY AND PHYSICAL EXAMINATION DIAGNOSES: 1. Unstable angina class IV. 2. Coronary artery disease. 3. Previous myocardial infarction with PTCA stent, last September. 4. Coumadin anticoagulation. 5. Aortic valve replacement. 6. Sick sinus syndrome. 7. Status post pacemaker. 8. Paroxysmal atrial fibrillation. 9. Hypertension. HISTORY OF PRESENT ILLNESS: Mrs. Winchester presents with 3 days of class IV unstable angina just like that of her previous angina prior to her myocardial infarction she had in September. She was at [place] at that time visiting. She underwent PTCA stent. She does not know what vessels. She thinks she got 2 stents at that time. She is having episodes of rest pain. She is anticoagulated with Coumadin for an aortic valve replacement. This is her third valve due to congenital aortic stenosis, last valve was done in [place]. She thinks approximately 5 years ago. She does have a [employer] pacemaker. This has been interrogated. She has small runs of atrial fibrillation. The pacemaker is functioning normally. The lower rate on the pacemaker is 50. She has hypertension for which she is on Minipress. PHYSICAL EXAMINATION: CONSTITUTIONAL/GENERAL APPEARANCE: Well nourished, well developed, appears stated age. EYES: Lids and conjunctivae noninjected. No discharge. No pallor. ENT: Lips within normal limit. No cyanosis. No pallor. NECK: Carotid arteries, bilateral normal upstroke. No bruits. No thrills. No jugular venous pressure or distention. CERVICAL LYMPH NODES: Nontender. Nonenlarged. THYROID: Not enlarged. No nodules. CARDIOVASCULAR: Precordial exam, nondisplaced. No heaves or pericardial thrills. Rate and rhythm, regular. Heart sounds, normal S1, normal S2. No S3, no gallop, no rub. Systolic murmur, not heard. Diastolic murmur, not heard. RESPIRATORY: Respiratory effort, unlabored. Normal curvature. No thoracic deformity. No chest wall tenderness. Percussion, resonant. Auscultation, clear. No wheezes, no rales, no rhonchi. ABDOMEN: Soft, nondistended, nontender. No abdominal pain, no vomiting and normal appetite. MUSCULOSKELETAL: No joint tenderness, normal gait, normal tone. SKIN: Warm and dry. OVERALL IMPRESSION: Class IV unstable angina. At this time, we will reverse her Coumadin, give her a dose of Lovenox tonight, proceed with coronary angiography in the a.m. TRANSINT:[id number] Voice Confirmation ID: [id number] DOCUMENT ID: [id number] HISTORY AND PHYSICAL [id number] KERA WINCHESTER JEFFREY MD at 1237 CC: [id number] DICTATION DATE: 06/27/19 1246 [place]: 06/27/19 1256 ADM IN [place] [place] [address]
--- NOTE | 2019-06-28 13:00 | NUR ---
PT ARRIVED BY STRETCHER. PLACED ON MONITOR. ASSESSMENT COMPLETED. VSS AT THIS TIME. CALL LIGHT WITHIN REACH.
--- NOTE | 2019-06-28 13:15 | NUR ---
PT RESTING COMFORTABLY. RIGHT GROIN DRESSING C/D/I. NO S/S OF HEMATOMA NOTED. VSS. CALL LIGHT WITHIN REACH.
--- NOTE | 2019-06-28 13:45 | NUR ---
RIGHT GROIN DRESSING C/D/I. NO S/S OF HEMATOMA NOTED. CALL LIGHT WITHIN REACH. FAMILY AT BEDSIDE
--- NOTE | 2019-06-28 14:30 | NUR ---
BP 88/53 (MAP 67). HR 51. WILL FINISH IVF INFUSION PER MD ORDERS, POST CATH. PT AMBULATED TO RESTROOM WITH ASSISTANCE. VOIDED WITHOUT DIFFICULTY. BACK TO BED AND PLACED BACK ON MONITORS. PT ALERT AND ORIENTED. FAMILY AT BEDSIDE.
--- NOTE | 2019-06-28 15:10 | NUR ---
BP 99/51. PT DENIES DIZZINESS. HR 50. PT ALERT AND ORIENTED. DENIES PAIN. RIGHT GROIN DRESSING C/D/I. NO S/S OF HEMATOMA NOTED. CALL LIGHT WITHIN REACH.
--- NOTE | 2019-06-28 15:19 | NUR ---
BP 109/70 HR 50 PIV D/C'D WITH CATH TIP INTACT. TOLERATED WELL. INSTRUCTED TO GET DRESSED.
--- NOTE | 2019-06-28 15:30 | NUR ---
DISCUSSED DISCHARGE INSTRUCTIONS WITH PT. SHE VOICED UNDERSTANDING.
--- NOTE | 2019-06-28 15:40 | NUR ---
PT TAKEN OUT TO VEHICLE BY WHEELCHAIR. NO S/S OF DISTRESS NOTED. ALL BELONGINGS AND PAPERWORK IN HAND.
--- NOTE | 2019-06-29 11:25 | DS ---
PATIENT:KERA WINCHESTER :84 MEDICAL RECORD: [id number] DISCHARGE SUMMARY ADMISSION DATE: 06/26/19 DISCHARGE DATE: 06/28/19 DISCHARGE DIAGNOSES: 1. Chest pain. 2. Coronary artery disease. 3. Previous percutaneous transluminal coronary angioplasty and stent. 4. Aortic valve replacement with mechanical prosthesis. HOSPITAL COURSE: Ms. Winchester has presented with chest discomfort; however, cardiac catheterization was with no significant stenosis, no restenosis of the previously placed stents. The chest discomfort was noncardiac in etiology, was discharged home with no change in her medications. TRANSINT:[id number] Voice Confirmation ID: [id number] DOCUMENT ID: [id number] SJ OVALLE MD at 1125 CC: [id number] DICTATION DATE: 06/28/19 1236 TRAVEL PHYSICAL THERAPIST: 06/29/19 0432 DIS IN 06/28/19 [address] [id number] [place] [address]
--- NOTE | 2019-06-29 11:25 | EC ---
PATIENT:KERA NJ DATE OF SERVICE: 06/26/19 SEX: F MEDICAL RECORD: [id number] DATE OF : 84 [facility] AGE OF PATIENT: 38 ADMISSION DATE: 06/26/19 REFERRING PHYSICIAN: INTERPRETING PHYSICIAN: JS SANTA MD ECHOCARDIOGRAM REPORT ECHO CHARGES 4 ECHO COMPLETE Date: 06/27/19 CLINICAL DIAGNOSIS: AVR ECHOCARDIOGRAPHIC MEASUREMENTS (adult normal given) AC root (d.<3.7cm) 2.6 cm LV Septum d (<1.2 cm> 0.9 cm Valve Excursion 0.9 cm LV Septum (systole) 1.5 cm Left Atria (s.<4.0cm> 2.5 cm LVPW d(<1.2cm) 1.2 cm RV (d.<2.3cm) 2.6 cm LVPW (sytole) 1.7 cm LV diastole(<5.6CM) 4.4 cm MV E-F(>70mm/sec) cm LV systole 2.1 cm LVOT Diameter 1.6 cm MV exc.(>10mm) cm Est.ejection fraction (50-75%) % DOPPLER: LVIT cm/sec A 58.0 cm/sec E 133 cm/sec LA cm/sec RVSP 50.3 mmHg LVOT 98.0 cm/sec AOP1/2T m/s Asc. Ao 235 cm/sec RVOT 63.0 cm/sec RA cm/sec PA 247 cm/sec AV Gradient Peak 22.0 mmHg AV Mean 13.2 mmHg AV Area 0.8 cm MV Gradient Peak 11.3 mmHg MV Mean 2.6 mmHg MV Area cm COMMENTS: Supervisor [employer]: Nikolay ALLISONOE Recreation Leader: 1 Dr. Santa TAPE# PACS Pericardial Effusion N DATE OF SERVICE: 06/28/2019 FINDINGS: 1. Left ventricular chamber size is within normal limits. Left ventricular systolic function is normal. Overall ejection fraction estimated at 55%. 2. Left atrium, right atrium, and right ventricular chamber sizes are within normal limits. 3. Valvular structures: Aortic valve is replaced with mechanical prosthesis with normal structure and function in this position. The remaining valvular structures have normal structure and motion. ECHOCARDIOGRAM REPORT [id number] KERA NJ 4. Doppler interrogation reveals moderate tricuspid regurgitation, no other valvular insufficiency or stenosis. Pulmonary systolic pressure estimated at 50 mmHg. 5. No evidence of pericardial effusion or left ventricular thrombus. TRANSINT:[id number] Voice Confirmation ID: [id number] DOCUMENT ID: [id number] JS SANTA MD at 1125 CC: [id number] DICTATION DATE: 06/28/19 170 [employer] [place]OWER: 06/28/192231 DIS IN 06/28/19 [place] [id number] [place] [id number]
--- NOTE | 2019-06-29 11:25 | OP ---
PATIENT NAME: KERA NJ MEDICAL RECORD: [id number] :84 LOCATION:[facility] ADMISSION DATE:06/26/19 SURGEON: JS OVALLE MD DATE OF OPERATION: 06/28/2019 PROCEDURES: 1. Left heart catheterization. 2. Selective coronary angiography. INDICATION: Angina and coronary artery disease. DESCRIPTION OF PERFORMED: After informed consent was obtained and after a detailed description of the risks, benefits as well as alternative therapies, the patient elected to proceed with angiogram. The right femoral area was prepped and draped in normal sterile fashion. Right femoral artery was cannulated via modified Seldinger technique with placement of 5-Welsh sheath. All catheters exchanged through this sheath. FINDINGS: Left ventriculogram was not performed secondary to prosthetic aortic valve. SELECTIVE CORONARY ANGIOGRAPHY: 1. Left main is with no significant angiographic disease. 2. Left anterior descending has no significant stenosis. Previously placed stents are widely patent with no significant restenosis. No disease elsewise throughout the LAD or its branches. 3. Left circumflex has no significant disease. 4. Right coronary has no significant disease. OVERALL IMPRESSION: Wide patency of the previously placed stents, no disease elsewise. Chest pain is noncardiac in etiology. TRANSINT:[id number] Voice Confirmation ID: [id number] DOCUMENT ID: [id number] JS OVALLE MD at 1125 CC: [id number] DICTATION DATE: 06/28/19 1235 MENTALLY IMPAIRED TEACHER: 06/28/19 1758 DIS IN 06/28/19 [place] [id number] [place] [address]
== END 2019-06-28 15:40 | disposition home or self-care (01) ==
LOC: D.ER 19:21 → D.M2 21:07 → OBSVTIME 06-27 05:33 → D.CLR 06-28 12:49
PROVIDERS: Emergency Medicine; ADMIT Internal Medicine Interventional Cardiology; ATTEND Internal Medicine Interventional Cardiology
DX: I25.119 Atherosclerotic heart disease of native coronary artery with unspecified angina pectoris (principal); Z95.2 Presence of prosthetic heart valve; R07.9 Chest pain, unspecified